=== PATIENT | female | born 1955 | race Hispanic/Latino ===

== ENCOUNTER 2016-12-28 18:22 | Inpatient (IN) | payer BC, OTHER ==
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
[2016-12-28] MEDS ORDERED: Morphine 4 MG/ML Carpuject ONE (19:19)
[2016-12-28 19:27] LABS: #Basophils 0.1 thou/uL (0.0-0.2); #Eosinphils 0.2 thou/uL (0.0-0.7); #Lymphocytes 1.9 thou/uL (1.20-3.40); #Monocytes 0.7 thou/uL (0.11-0.59); #Neutrophils 6.9 thou/uL (1.40-6.50); %Basophils 0.9 % (0.0-1.0); %Eosinophils 1.8 % (0.0-10.0); %Lymphocytes 19.1 % (21.0-51.0); %Monocytes 7.3 % (0.0-10.0); Hematocrit 41.6 % (36.0-47.0); Mean Platelet Volume 8.1 fL (7.4-10.4); White Blood Cell (WBC) Count 9.7 thou/uL (4.8-10.8)
[2016-12-28 19:43] LABS: ALT (SGPT) 38 U/L (8-55); AST (SGOT) 34 U/L (5-34); Alkaline Phosphatase 97 U/L (40-150); Anion Gap 15 mmol/L (10-20); BUN (Urea Nitrogen) 24 mg/dL (9.8-20.1); Bilirubin, Total 0.7 mg/dL (0.2-1.2); Calc. Creatinine Clearance 0 mL/min (70-130); Calcium 9.4 mg/dL (7.8-10.44); Carbon Dioxide 23 mmol/L (23-31); Chloride 107 mmol/L (98-107); Estimated GFR-MDRD 78; Globulin 3.5 g/dL (2.4-3.5); Lipase 44 U/L (8-78); Protein, Total 7.7 g/dL (6.0-8.3)
[2016-12-28 19:44] LABS: Troponin I 0.014 ng/mL (< 0.028)
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
[2016-12-28 22:45] LABS: Troponin I 0.629 ng/mL (< 0.028)
[2016-12-29 00:38] VITALS: BMI 34.9
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
[2016-12-29] MEDS ORDERED: Ondansetron HCl/PF 4 MG/2 ML Vial IVP PRN (01:30)
[2016-12-29] MEDS ORDERED: Enoxaparin Sodium 40 MG/0.4 ML SYRINGE SC SCH ×2 (01:30→03:00)
[2016-12-29] MEDS ORDERED: Acetaminophen 325 MG TAB PO PRN (01:30)
[2016-12-29] MEDS ORDERED: HYDROcodone/Acetaminophen 5/325 mg Tablet PO PRN (01:30)
[2016-12-29] MEDS: Sodium Chloride 0.9% 1,000 ML IV SCH ×2 (01:50→19:03)
[2016-12-29 02:24] LABS: Troponin I 1.498 ng/mL (< 0.028)
[2016-12-29 05:14] LABS: #Eosinphils 0.2 thou/uL (0.0-0.7); #Lymphocytes 2.1 thou/uL (1.20-3.40); #Monocytes 0.7 thou/uL (0.11-0.59); #Neutrophils 5.5 thou/uL (1.40-6.50); %Basophils 0.4 % (0.0-1.0); %Eosinophils 2.2 % (0.0-10.0); %Lymphocytes 24.9 % (21.0-51.0); %Monocytes 8.5 % (0.0-10.0); Mean Platelet Volume 7.7 fL (7.4-10.4); Red Blood Cell (RBC) Count 4.57 mill/uL (4.20-5.40); White Blood Cell (WBC) Count 8.6 thou/uL (4.8-10.8)
[2016-12-29 05:27] LABS: Anion Gap 11 mmol/L (10-20); BUN (Urea Nitrogen) 21 mg/dL (9.8-20.1); Calc. Creatinine Clearance 130 mL/min (70-130); Calcium 9.1 mg/dL (7.8-10.44); Carbon Dioxide 26 mmol/L (23-31); Chloride 107 mmol/L (98-107); Estimated GFR-MDRD 86
[2016-12-29 07:12] LABS: Troponin I 1.639 ng/mL (< 0.028)
[2016-12-29] MEDS ORDERED: Nitroglycerin 0.4 MG TAB (25 Tab Bottle) PO PRN (08:18)
[2016-12-29] MEDS ORDERED: Senokot 8.6 MG TAB PO PRN (08:18)
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
[2016-12-29] MEDS ORDERED: Aspirin 325 mg Enteric Coated Tablet PO SCH (09:00)
[2016-12-29] MEDS ORDERED: Metoprolol Tartrate 25 MG TAB PO SCH ×3 (09:00→21:00)
[2016-12-29] MEDS ORDERED: Famotidine/PF 20 mg/2ml Vial SLOW IVP SCH (09:00)
[2016-12-29] MEDS: Famotidine 20 MG TAB PO SCH ×2 (10:07→20:32)
[2016-12-29] MEDS: Docusate 100 MG CAP PO SCH ×2 (10:08→20:32)
[2016-12-29 10:47] LABS: Troponin I 1.401 ng/mL (< 0.028)
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
[2016-12-29] MEDS: Carvedilol 6.25 MG TAB PO SCH (17:19)
[2016-12-29] MEDS: Aspirin 81 mg Enteric Coated Tablet PO SCH (20:32)
[2016-12-29] MEDS: Atorvastatin Calcium 10 MG TAB PO SCH (20:32)
[2016-12-29] MEDS ORDERED: Aspirin 325 MG TAB PO SCH (21:00)
[2016-12-30 03:48] LABS: #Basophils 0.1 thou/uL (0.0-0.2); #Eosinphils 0.3 thou/uL (0.0-0.7); #Lymphocytes 1.8 thou/uL (1.20-3.40); #Monocytes 0.7 thou/uL (0.11-0.59); #Neutrophils 4.1 thou/uL (1.40-6.50); %Basophils 0.9 % (0.0-1.0); %Eosinophils 3.9 % (0.0-10.0); %Lymphocytes 25.5 % (21.0-51.0); %Monocytes 10.4 % (0.0-10.0); Mean Platelet Volume 7.5 fL (7.4-10.4); Red Blood Cell (RBC) Count 4.46 mill/uL (4.20-5.40); White Blood Cell (WBC) Count 6.9 thou/uL (4.8-10.8)
[2016-12-30 04:03] LABS: ALT (SGPT) 32 U/L (8-55); AST (SGOT) 36 U/L (5-34); Alkaline Phosphatase 84 U/L (40-150); Anion Gap 13 mmol/L (10-20); BUN (Urea Nitrogen) 17 mg/dL (9.8-20.1); Calc. Creatinine Clearance 124 mL/min (70-130); Carbon Dioxide 25 mmol/L (23-31); Chloride 106 mmol/L (98-107); Estimated GFR-MDRD 82; Magnesium 2.3 mg/dL (1.6-2.6); Phosphorus 4.3 mg/dL (2.3-4.7); Protein, Total 6.7 g/dL (6.0-8.3)
[2016-12-30] MEDS: Docusate 100 MG CAP PO SCH ×2 (08:53→20:59)
[2016-12-30] MEDS: Famotidine 20 MG TAB PO SCH ×2 (08:53→20:59)
[2016-12-30] MEDS: Carvedilol 6.25 MG TAB PO SCH ×2 (08:53→17:37)
[2016-12-30] MEDS: Lisinopril 2.5 MG TAB PO SCH (08:54)
--- NOTE | 2016-12-30 12:15 | PDOC.PN ---
- Subjective Encounter Start Date: 12/30/16 Encounter Start Time: 12:13 Patient seen at bedside. No overnight events, still had reproducible chest pain , no SOB. - Objective Resuscitation Status: Resuscitation Status FULL:Full Resuscitation MAR Reviewed: Yes Vital Signs & Weight: Vital Signs (12 hours) Temp Pulse Resp BP BP Pulse Ox 12/30/16 11:04 98.8 F 90 16 120/86 95 12/30/16 08:54 79 146/95 H 12/30/16 08:53 146/95 H 12/30/16 08:00 98.6 F 79 18 99 12/30/16 07:15 98.6 F 82 17 146/95 H 94 L 12/30/16 03:45 98.5 F 86 16 150/97 H 97 12/30/16 02:57 95 12/30/16 00:30 98.4 F 76 18 121/67 96 Weight Weight 211 lb 11.2 oz I&O: 12/29/16 12/30/16 12/31/16 06:59 06:59 06:59 Intake Total 400 2100 Output Total 650 950 Balance -250 1150 Result Diagrams: 12/30/16 03:24 12/30/16 03:24 Phys Exam - Physical Examination Constitutional: NAD HEENT: moist MMs Neck: no JVD Respiratory: clear to auscultation bilateral Cardiovascular: RRR Gastrointestinal: soft Musculoskeletal: no edema, pulses present Neurological: moves all 4 limbs Psychiatric: normal affect, A&O x 3 Dx/Plan (1) Chest pain Code(s): R07.9 - CHEST PAIN, UNSPECIFIED Status: Acute Qualifiers: Chest pain type: unspecified Qualified Code(s): R07.9 - Chest pain, unspecified (2) Abnormal EKG Code(s): R94.31 - ABNORMAL ELECTROCARDIOGRAM [ECG] [EKG] Status: Acute (3) Hyperlipidemia Code(s): E78.5 - HYPERLIPIDEMIA, UNSPECIFIED Status: Chronic - Plan cont current plan of care, out of bed/ambulate, DVT proph w/SCDs * Continue ASA/Statin/Coreg * Await echocardiogram results (reportedly decreased EF and will require a catheterization) * Chest pain is most likely a myocardial contusion, however EKG findings are new , hence cardiac workup * Possible cardiac cath in AM
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
[2016-12-30] MEDS ORDERED: Communication Order-Pharmacy FS SCH (15:15)
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
[2016-12-30] MEDS: Atorvastatin Calcium 10 MG TAB PO SCH (20:59)
[2016-12-30] MEDS: Aspirin 81 mg Enteric Coated Tablet PO SCH (20:59)
[2016-12-31] MEDS: Carvedilol 6.25 MG TAB PO SCH ×2 (05:38→17:27)
[2016-12-31] MEDS: Sodium Chloride 0.9% 1,000 ML IV SCH ×2 (05:39→17:29)
[2016-12-31] MEDS ORDERED: Fentanyl 100 MCG/2 ML VIAL ONE (08:05)
[2016-12-31] MEDS ORDERED: Midazolam HCl 2 mg/2 ml Vial ONE (08:05)
[2016-12-31] MEDS ORDERED: Acetaminophen/Codeine 30-300mg Tablet PO PRN (09:11)
[2016-12-31] MEDS ORDERED: Nitroglycerin 0.4 MG TAB (25 Tab Bottle) SL PRN (09:11)
[2016-12-31] MEDS ORDERED: Sodium Chloride 0.9% 200 ML IV SCH (09:15)
[2016-12-31] MEDS: Lisinopril 2.5 MG TAB PO SCH (12:56)
[2016-12-31] MEDS: Famotidine 20 MG TAB PO SCH ×2 (12:56→21:15)
[2016-12-31] MEDS: traMADol HCl 50 MG TAB PO PRN (12:58)
[2016-12-31] MEDS: Docusate 100 MG CAP PO SCH ×2 (12:59→21:15)
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
[2016-12-31] MEDS ORDERED: Iopamidol 370 76% 100 ML VIAL ONE (15:33)
[2016-12-31] MEDS ORDERED: Atorvastatin Calcium 10 MG TAB PO SCH (21:00)
[2016-12-31] MEDS: Atorvastatin Calcium 40 MG TAB PO SCH (21:15)
[2016-12-31] MEDS: Aspirin 81 mg Enteric Coated Tablet PO SCH (21:15)
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
[2017-01-01] MEDS: Sodium Chloride 0.9% 1,000 ML IV SCH ×2 (03:32→10:50)
--- NOTE | 2017-01-01 09:24 | PRG ---
DATE OF SERVICE: 01/01/2017 SUBJECTIVE: She is doing well. She has some right lateral leg pain, it was felt that it is related to her back. There is no groin pain, otherwise feels well. PHYSICAL EXAMINATION: VITAL SIGNS: Blood pressure is 133/81, pulse 82, regular. LUNGS: Clear. CARDIAC: Normal S1, S2. ABDOMEN: Soft, nontender. EXTREMITIES: No edema. ASSESSMENT: 1. Cardiomyopathy. 2. Underlying coronary artery disease. 3. Appears to have ischemic cardiomyopathy, probably some element of idiopathic cardiomyopathy as w ell. 4. Left bundle branch block. PLAN: 1. She is on Carvedilol 12.5 mg twice a day. Try to increase dose further as an outpatient. 2. Atorvastatin 40 mg a day. 3. Aspirin 81 mg a day. 4. Lisinopril 2.5 mg a day. Dose to be increased later. We are trying to obtain LifeVest for this patient. Insurance is being checked on. ADDENDUM: I did review the patient's cardiac catheterization. There is a small area of inferior ak inesis. There is also global hypokinesis. The patient has a combination of cardiomyopathy as well a s coronary disease.
[2017-01-01] MEDS: Docusate 100 MG CAP PO SCH ×2 (09:58→22:55)
[2017-01-01] MEDS: Lisinopril 5 MG TAB PO SCH (10:05)
[2017-01-01] MEDS: traMADol HCl 50 MG TAB PO PRN (10:06)
[2017-01-01] MEDS: Famotidine 20 MG TAB PO SCH ×2 (10:06→22:55)
[2017-01-01] MEDS: Carvedilol 6.25 MG TAB PO SCH ×2 (10:06→16:57)
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
[2017-01-01] MEDS: Acetaminophen/Codeine 30-300mg Tablet PO PRN (13:08)
--- NOTE | 2017-01-01 15:34 | PRG ---
DATE OF SERVICE: 01/01/2017 SUBJECTIVE: The patient is doing reasonably well. She is walking in the high. She has no complain ts. OBJECTIVE: VITAL SIGNS: Blood pressure 133/81, heart rate is in the 80s, respiratory rate is in the teens whil e she is walking. She is totally comfortable walking in the high. LUNGS: Clear. HEART: Regular rhythm. IMPRESSION: Cardiomyopathy with underlying coronary artery disease. PLAN: Continue medical management.
[2017-01-01] MEDS: Atorvastatin Calcium 40 MG TAB PO SCH (22:55)
[2017-01-01] MEDS: Aspirin 81 mg Enteric Coated Tablet PO SCH (22:55)
[2017-01-02 05:51] LABS: Anion Gap 13 mmol/L (10-20); BUN (Urea Nitrogen) 17 mg/dL (9.8-20.1); Calc. Creatinine Clearance 130 mL/min (70-130); Calcium 8.8 mg/dL (7.8-10.44); Carbon Dioxide 24 mmol/L (23-31); Chloride 106 mmol/L (98-107); Estimated GFR-MDRD 89
[2017-01-02 06:02] LABS: #Eosinphils 0.2 thou/uL (0.0-0.7); #Lymphocytes 1.6 thou/uL (1.20-3.40); #Monocytes 0.6 thou/uL (0.11-0.59); #Neutrophils 3.8 thou/uL (1.40-6.50); %Basophils 0.5 % (0.0-1.0); %Eosinophils 3.4 % (0.0-10.0); %Lymphocytes 25.9 % (21.0-51.0); %Monocytes 9.3 % (0.0-10.0); Hematocrit 37.5 % (36.0-47.0); Mean Platelet Volume 8.1 fL (7.4-10.4); Red Blood Cell (RBC) Count 4.13 mill/uL (4.20-5.40); White Blood Cell (WBC) Count 6.2 thou/uL (4.8-10.8)
[2017-01-02] MEDS: Carvedilol 6.25 MG TAB PO SCH ×2 (09:19→17:55)
[2017-01-02] MEDS: Famotidine 20 MG TAB PO SCH ×2 (09:19→21:09)
[2017-01-02] MEDS: Lisinopril 5 MG TAB PO SCH (09:19)
[2017-01-02] MEDS: Docusate 100 MG CAP PO SCH ×2 (09:19→21:09)
--- NOTE | 2017-01-02 09:21 | PRG ---
DATE OF SERVICE: 01/02/2017 Ms. Callaway is doing well. She is sitting up in the chair. She is awake and alert. PHYSICAL EXAMINATION: VITAL SIGNS: Blood pressure 133/81, pulse 70, it is regular. LUNGS: Clear. CARDIAC: Normal S1 and S2. ABDOMEN: Soft, nontender. EXTREMITIES: There is no edema. The patient did have some AV block last night, it looked suspicious for Mobitz II. ASSESSMENT: 1. Left bundle branch block. 2. Cardiomyopathy. 3. Coronary artery disease with small area of akinesis of the inferior wall. 4. Troponin rise this admission, difficult to be certain, but certainly could have been a myocardia l contusion with the troponin rise to 1.639. PLAN: Electrophysiology was consulted, consideration for proceeding to biventricular pacemaker defi brillator.
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
[2017-01-02] MEDS: Atorvastatin Calcium 40 MG TAB PO SCH (21:09)
[2017-01-02] MEDS: Aspirin 81 mg Enteric Coated Tablet PO SCH (21:10)
[2017-01-03] MEDS ORDERED: hydrALAZINE 20 MG/ML VIAL SLOW IVP PRN (07:39)
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
[2017-01-03] MEDS ORDERED: CEFAZOLIN/Water 2 GM/20 ML SYRINGE SLOW IVP SCH (10:00)
[2017-01-03] MEDS ORDERED: Propofol 500 MG/50 ML VIAL ONE ×2 (15:17→16:02)
[2017-01-03] MEDS ORDERED: Propofol 200 MG/20 ML VIAL ONE (15:22)
[2017-01-03] MEDS ORDERED: Isoproterenol 0.2 MG/1 ML AMP ONE ×2 (16:16→16:36)
[2017-01-03] MEDS ORDERED: Ondansetron HCl/PF 4 MG/2 ML Vial IVP PRN ×2 (16:53→17:11)
[2017-01-03] MEDS ORDERED: Promethazine HCl 25 MG/ML VIAL SLOW IVP PRN (16:53)
[2017-01-03] MEDS ORDERED: Promethazine HCl 25 MG/ML VIAL IM PRN (16:53)
[2017-01-03] MEDS ORDERED: Bisacodyl 10 MG SUPP PR PRN (17:11)
[2017-01-03] MEDS ORDERED: Mag-Al 1200 mg/1200 mg/30 ML UDCUP PO PRN (17:11)
[2017-01-03] MEDS ORDERED: Silver Sulfadiazine 1% Cream 50 GM JAR TOP PRN (17:11)
[2017-01-03] MEDS ORDERED: traMADol HCl 50 MG TAB PO PRN (17:11)
[2017-01-03] MEDS ORDERED: Temazepam 15 MG CAP PO PRN (17:11)
[2017-01-03] MEDS ORDERED: Nitroglycerin 0.4 MG TAB (25 Tab Bottle) SL PRN (17:11)
[2017-01-03] MEDS ORDERED: Bisacodyl 5 MG TAB PO PRN (17:11)
[2017-01-03] MEDS ORDERED: Acetaminophen 325 MG TAB PO PRN (17:11)
[2017-01-03] MEDS ORDERED: diphenhydrAMINE 25 MG CAP PO PRN (17:11)
[2017-01-03] MEDS: Docusate 100 MG CAP PO SCH ×2 (18:06→21:03)
[2017-01-03] MEDS: Carvedilol 6.25 MG TAB PO SCH ×2 (18:06→18:10)
[2017-01-03] MEDS: Famotidine 20 MG TAB PO SCH ×2 (18:09→21:03)
[2017-01-03] MEDS: Lisinopril 5 MG TAB PO SCH (18:09)
[2017-01-03] MEDS: Atorvastatin Calcium 40 MG TAB PO SCH (21:03)
[2017-01-03] MEDS: Aspirin 81 mg Enteric Coated Tablet PO SCH (21:03)
[2017-01-03] MEDS: Acetaminophen/Codeine 30-300mg Tablet PO PRN (21:06)
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
[2017-01-04 05:09] LABS: #Eosinphils 0.2 thou/uL (0.0-0.7); #Lymphocytes 1.7 thou/uL (1.20-3.40); #Monocytes 0.8 thou/uL (0.11-0.59); #Neutrophils 5.8 thou/uL (1.40-6.50); %Basophils 0.4 % (0.0-1.0); %Eosinophils 2.1 % (0.0-10.0); %Lymphocytes 20.1 % (21.0-51.0); %Monocytes 9.7 % (0.0-10.0); Hematocrit 42.1 % (36.0-47.0); Mean Platelet Volume 8.1 fL (7.4-10.4); Red Blood Cell (RBC) Count 4.71 mill/uL (4.20-5.40); White Blood Cell (WBC) Count 8.6 thou/uL (4.8-10.8)
[2017-01-04 05:17] LABS: PTT 36.3 SEC (22.9-36.1); Prothrombin Time 14.6 SEC (12.0-14.7)
[2017-01-04 05:21] LABS: Anion Gap 13 mmol/L (10-20); BUN (Urea Nitrogen) 21 mg/dL (9.8-20.1); Calc. Creatinine Clearance 110 mL/min (70-130); Calcium 9.2 mg/dL (7.8-10.44); Carbon Dioxide 23 mmol/L (23-31); Chloride 103 mmol/L (98-107); Estimated GFR-MDRD 76
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
[2017-01-04 08:20] VITALS: TEMP 98.3
[2017-01-04] MEDS: Lisinopril 5 MG TAB PO SCH (08:20)
[2017-01-04] MEDS: Famotidine 20 MG TAB PO SCH (10:08)
[2017-01-04] MEDS: Docusate 100 MG CAP PO SCH (10:08)
[2017-01-04] MEDS: Carvedilol 6.25 MG TAB PO SCH (10:09)
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
[2017-01-04 11:57] VITALS: BP 134/86
--- NOTE | 2017-01-04 16:04 | EKG ---
Test Reason : Blood Pressure : / mmHG Vent. Rate : 074 BPM Atrial Rate : 074 BPM P-R Int : 200 ms QRS Dur : 168 ms QT Int : 458 ms P-R-T Axes : 036 -01 171 degrees QTc Int : 508 ms Normal sinus rhythm Left bundle branch block Abnormal ECG When compared with ECG of 28-DEC-2016 22:08, (Unconfirmed) No significant change was found Confirmed by DR. Manuelito HOFFMAN ([id number]) on 01/04/2017 4:04:40 PM Referred By: [facility] Confirmed By:DR. Manuelito HOFFMAN
--- NOTE | 2017-01-04 16:08 | EKG ---
Test Reason : Blood Pressure : / mmHG Vent. Rate : 080 BPM Atrial Rate : 080 BPM P-R Int : 200 ms QRS Dur : 168 ms QT Int : 474 ms P-R-T Axes : 042 -01 160 degrees QTc Int : 546 ms Normal sinus rhythm Possible Left atrial enlargement Left bundle branch block Abnormal ECG When compared with ECG of 03-JAN-2017 10:29, (Unconfirmed) No significant change was found Confirmed by DR. Manuelito HOFFMAN ([id number]) on 01/04/2017 4:08:07 PM Referred By: [facility] Confirmed By:DR. Manuelito HOFFMAN
[2017-01-05] MEDS ORDERED: Lisinopril 10 MG TAB PO SCH (09:00)
--- NOTE | 2017-01-05 14:13 | EKG ---
Test Reason : Blood Pressure : / mmHG Vent. Rate : 111 BPM Atrial Rate : 111 BPM P-R Int : 134 ms QRS Dur : 152 ms QT Int : 358 ms P-R-T Axes : 019 -01 181 degrees QTc Int : 486 ms Sinus tachycardia Left bundle branch block Abnormal ECG Confirmed by SULEMA WINN ([id number]), city editor HUONG BECERRA ([id number]) on 01/05/2017 2:13:18 PM Referred By: Confirmed By:SULEMA WINN
--- NOTE | 2017-01-19 10:11 | EKG ---
Test Reason : Blood Pressure : / mmHG Vent. Rate : 097 BPM Atrial Rate : 097 BPM P-R Int : 178 ms QRS Dur : 156 ms QT Int : 402 ms P-R-T Axes : 034 -04 164 degrees QTc Int : 510 ms Normal sinus rhythm Left bundle branch block Abnormal ECG Confirmed by SULEMA WINN ([id number]), photograph editor HUONG BECERRA ([id number]) on 01/19/2017 10:10:55 AM Referred By: Confirmed By:SULEMA WINN
== END 2017-01-04 12:10 | disposition home or self-care (01) | DRG 286 ==
LOC: SCSER 18:22 → IMCU/EMU 23:05 → 2NO 01-01 17:12
PROVIDERS: ADMIT Internal Medicine; ATTEND Internal Medicine
PROC: 4A023N7 Measurement of Cardiac Sampling and Pressure, Left Heart, Percutaneous Approach (ICD-10-PCS; principal; 2016-12-31)
PROC: B2111ZZ Fluoroscopy of Multiple Coronary Arteries using Low Osmolar Contrast (ICD-10-PCS; 2016-12-31)
PROC: B2151ZZ Fluoroscopy of Left Heart using Low Osmolar Contrast (ICD-10-PCS; 2016-12-31)
DX: S26.91XA Contusion of heart, unspecified with or without hemopericardium, initial encounter (principal); I50.23 Acute on chronic systolic (congestive) heart failure; I13.0 Hypertensive heart and chronic kidney disease with heart failure and stage 1 through stage 4 chronic kidney disease, or unspecified chronic kidney disease; S40.011A Contusion of right shoulder, initial encounter; I25.10 Atherosclerotic heart disease of native coronary artery without angina pectoris; I25.5 Ischemic cardiomyopathy; I44.7 Left bundle-branch block, unspecified; M47.814 Spondylosis without myelopathy or radiculopathy, thoracic region; N18.2 Chronic kidney disease, stage 2 (mild); I44.30 Unspecified atrioventricular block; E78.5 Hyperlipidemia, unspecified; E87.6 Hypokalemia; E66.9 Obesity, unspecified; Z68.33 Body mass index [BMI] 33.0-33.9, adult; V43.52XA Car driver injured in collision with other type car in traffic accident, initial encounter
CPT/HCPCS: 36415; 71010; 71260; 74177; 76942; 80048; 80053; 80061; 82553; 83036; 83690; 83735; 83880; 84100; 84443; 84484; 85025; 85610; 85730; 93005; 93010; 93306; 93458; 93621; 93798; 94760; 96374; 99152; 99153; A4216; C1730; C1769; J0360; J1644; J2250; J2270; J2704; J3010

== ENCOUNTER 2017-09-07 23:35 | Emergency (ER) | payer BC, OTHER ==
[2017-09-07] MEDS ORDERED: Ondansetron ODT 4 MG TAB ONE (23:49)
[2017-09-08 00:27] LABS: #Eosinphils 0.1 thou/uL (0.0-0.7); #Lymphocytes 1.2 thou/uL (1.20-3.40); #Monocytes 0.8 thou/uL (0.11-0.59); #Neutrophils 9.8 thou/uL (1.40-6.50); %Basophils 0.4 % (0.0-1.0); %Eosinophils 0.7 % (0.0-10.0); %Lymphocytes 10.1 % (21.0-51.0); %Monocytes 6.6 % (0.0-10.0); %Neutrophils 82.2 % (42.0-75.0); Hemoglobin 13.7 g/dL (12.0-16.0); Mean Corpuscular Hemoglobin 30.7 pg (27.0-31.0); Mean Corpuscular Volume 83.1 fL (78.0-98.0); Mean Platelet Volume 7.8 fL (7.4-10.4); Platelet Count 244 thou/uL (130-400); RBC Distribution Width 10.5 % (11.5-14.5); Red Blood Cell (RBC) Count 4.46 mill/uL (4.20-5.40)
[2017-09-08] MEDS ORDERED: Labetalol HCl 100 MG/20 ML VIAL ONE (00:31)
[2017-09-08 00:41] LABS: ALT (SGPT) 23 U/L (8-55); AST (SGOT) 23 U/L (5-34); Albumin 4.3 g/dL (3.4-4.8); Alkaline Phosphatase 83 U/L (40-150); Anion Gap 16 mmol/L (10-20); BUN (Urea Nitrogen) 18 mg/dL (9.8-20.1); Bilirubin, Total 1.5 mg/dL (0.2-1.2); Calc. Creatinine Clearance 0 mL/min (70-130); Calcium 9.5 mg/dL (7.8-10.44); Carbon Dioxide 25 mmol/L (23-31); Chloride 101 mmol/L (98-107); Estimated GFR-MDRD 79; Globulin 3.4 g/dL (2.4-3.5); Glucose 169 mg/dL (80-115); Lipase 30 U/L (8-78); Potassium 3.7 mmol/L (3.5-5.1); Protein, Total 7.7 g/dL (6.0-8.3); Sodium 138 mmol/L (136-145)
[2017-09-08] MEDS ORDERED: Ondansetron ODT 4 MG TAB ONE (01:06)
[2017-09-08] MEDS ORDERED: Promethazine HCl 25 MG/ML VIAL ONE (01:37)
--- NOTE | 2017-09-08 10:46 | RAD ---
ONE VIEW CHEST TWO VIEWS ABDOMEN: HISTORY: Pain. FINDINGS: CHEST 1 VIEW: Left-sided transvenous defibrillator with lead position over the right atrium and right ventricle. N ormal cardiac silhouette. There is atherosclerosis of the aorta. Pulmonary vessels are slightly pro minent. Costophrenic angles are clear. Linear opacity in the right lung base due to scar or atelect asis. Small hiatal hernia is suspected. No pneumothorax. ABDOMEN 2 VIEWS: Nonspecific bowel gas pattern. Fecal material in the right hemicolon. No differential air fluid lev els. No pneumoperitoneum. IMPRESSION: 1. No acute cardiopulmonary process. 2. Small hiatal hernia. 3. Scar/atelectasis in the right lung base. 4. Nonspecific bowel gas pattern. POS: [facility]
== END 2017-09-08 03:21 | disposition home or self-care (01) ==
LOC: SCSER 23:35
DX: R11.2 Nausea with vomiting, unspecified (principal); R10.13 Epigastric pain; Z79.899 Other long term (current) drug therapy; E66.9 Obesity, unspecified
CPT/HCPCS: 74022; 80053; 83690; 85025; 96365; 96372; 96375; J2270; J2550; Q0162

== ENCOUNTER 2017-10-02 13:55 | Outpatient (CLI) | payer OTHER | END 2017-10-02 13:56 | disposition home or self-care (01) | LOC: BICRAD 13:55 | PROVIDERS: ATTEND Family Medicine | DX: R05 Cough (principal); J98.11 Atelectasis; K44.9 Diaphragmatic hernia without obstruction or gangrene; I70.90 Unspecified atherosclerosis | CPT/HCPCS: 71046 ==

== ENCOUNTER 2018-06-30 11:07 | Outpatient (CLI) | payer MEDICARE, OTHER ==
--- NOTE | 2018-07-30 09:47 | MMO ---
Bilateral MAMMO Bilat Screen [id number]. CLINICAL HISTORY: Patient is 63 years old and is seen for screening. The patient has no family history of breast cancer. The patient has no personal history of cancer. VIEWS: The views performed were: bilateral craniocaudal with tomosynthesis and bilateral mediolateral oblique with tomosynthesis. MAMMOGRAM FINDINGS: There are scattered fibroglandular densities. There are vascular calcifications seen in both breasts. There are no suspicious masses, suspicious calcifications, or new areas of architectural distortion. IMPRESSION: A ROUTINE FOLLOW-UP MAMMOGRAM IN 1 YEAR IS RECOMMENDED. THE RESULTS OF THIS EXAM WERE SENT TO THE PATIENT. ACR BI-RADS Category 2 - Benign finding MAMMOGRAPHY NOTE: 1. A negative mammogram report should not delay a biopsy if a dominant of clinically suspicious mass is present. 2. Approximately 10% to 15% of breast cancers are not detected by mammography. 3. Adenosis and dense breasts may obscure an underlying neoplasm.
== END 2018-06-30 11:08 | disposition home or self-care (01) ==
LOC: BICMAMMO 11:07
PROVIDERS: ATTEND Family Medicine
DX: Z12.31 Encounter for screening mammogram for malignant neoplasm of breast (principal)
CPT/HCPCS: 77063; 77067

== ENCOUNTER 2018-12-04 09:57 | Outpatient (CLI) | payer MEDICARE ==
--- NOTE | 2018-12-04 12:01 | BD ---
DEXA BONE MINERAL DENSITY STUDY: HISTORY: Postmenopausal. FINDINGS: Lumbar Spine: BMD (g/cm2) L1 0.826 T-Score: -1.5 L2 1.026 T-Score: +0.0 L3 1.017 T-Score: -0.6 L4 1.174 T-Score: +1.0 L1-L4 1.017 T-Score: -0.3 Femoral Neck: 0.596 T-Score: -2.3 Total Femur: 0.876 T-Score: -0.5 Impression: Osteopenia of the left femoral neck and normal bone mineral density of the lumbar spine. POS: [facility]
== END 2018-12-04 09:58 | disposition home or self-care (01) ==
LOC: BICMAMMO 09:57
PROVIDERS: ATTEND Family Medicine
DX: Z13.820 Encounter for screening for osteoporosis (principal); M85.88 Other specified disorders of bone density and structure, other site; Z78.0 Asymptomatic menopausal state
CPT/HCPCS: 77080

== ENCOUNTER 2021-03-22 12:58 | Outpatient (CLI) | payer MEDICARE | END 2021-03-22 12:59 | disposition home or self-care (01) | LOC: BICMAMMO 12:58 | PROVIDERS: ATTEND Family Medicine | DX: Z12.31 Encounter for screening mammogram for malignant neoplasm of breast (principal); N95.9 Unspecified menopausal and perimenopausal disorder; M81.0 Age-related osteoporosis without current pathological fracture; M85.89 Other specified disorders of bone density and structure, multiple sites | CPT/HCPCS: 77063; 77067; 77080 ==